=== PATIENT | female | born 1945 | race Two or more races ===

== ENCOUNTER 2024-01-08 08:27 | Outpatient (CLI) | payer OTHER | END 2024-01-08 08:34 | disposition home or self-care (01) | LOC: RAD 08:27 | PROVIDERS: ATTEND Specialist | DX: I70.0 Atherosclerosis of aorta (principal) ==

== ENCOUNTER → 2024-01-08 09:34 | Outpatient (CLI) | payer OTHER ==
[2024-01-08 11:49] LABS: HEMATOCRIT 43.3 % (36.0-45.00); HEMOGLOBIN 14.6 g/dL (12.0-15.00); MEAN CELL VOLUME 94.6 fL (80.00-100.00); MEAN CORPUSCULAR HEMOGLOBIN 31.9 pg (27.00-32.0); MEAN CORPUSCULAR HGB CONC 33.7 g/dl (32.0-36.0); PLATELET COUNT 162 K/uL (150-450); RED BLOOD COUNT 4.58 M/uL (4.00-6.00); RED CELL DISTRIBUTION WIDTH 13.3 % (11.5-14.5)
[2024-01-08 12:06] LABS: PH,URINE 5.5 (5.0-8.0); URINE APPEARANCE Clear; URINE BILIRRUBIN Negative (NEGATIVE); URINE BLOOD Negative; URINE COLOR Yellow; URINE LEUKOCYTE Negative; URINE NITRATE Negative; URINE PROTEIN Negative (NEGATIVE); URINE UROBILINOGEN 0.2 E.U./dl
[2024-01-08 12:10] LABS: URINE BACTERIA 54.1 uL (0.0-1933); URINE RBC 2.5 uL (0.0-20.8); URINE WBC 12.6 uL (0.0-23.2)
[2024-01-08 12:26] LABS: URINE GLUCOSE >=1000 MG/DL (NEGATIVE)
[2024-01-08 12:58] LABS: ALBUMIN 3.8 gm/dL (3.4-5.0); ALKALINE PHOSPHATASE 80 U/L (50-136); ALT/SGPT 20 U/L (12-78); ANION GAP 7 (10.0-20.0); AST/SGOT 14 U/L (15-37); BILIRUBIN TOTAL 0.44 mg/dL (0.3-1.2); BLOOD UREA NITROGEN 21 mg/dL (7-18); BUN CREA RATIO 32 (7.0-25.0); CALCIUM 8.8 mg/dL (8.5-10.1); CARBON DIOXIDE 28 mEq/L (21-32); CHLORIDE 108 mmol/L (98-107); CHOL HDL RATIO 3.2 (0-5.0); CHOLESTEROL 208 mg/dL (0-200); CREATININE SERUM 0.66 mg/dL (0.55-1.02); GFR 86.17; GLOBULINA 2.8 G/DL (2.4-3.5); GLUCOSE FASTING 169 mg/dL (65-100); HDL 65 mg/dl (40-60); LDL 117 mg/dl (0-130); OSMOLALITY SERUM 283 MOSM/KG (275-295); POTASSIUM 4.73 mEq/L (3.5-5.1); SODIUM 138 mmol/L (136-145); T4 FREE 1.04 NG/ML (0.76-1.46); TOTAL PROTEIN 6.6 gm/dL (6.4-8.2); TRIGLYCERIDES 128 mg/dL (0-150); TSH 0.945 uIU/mL (0.358-3.74); VLDL 25 (0-39)
[2024-01-08 13:20] LABS: C-REACTIVE PROTEIN < 0.29 MG/DL (0.00-0.29)
[2024-01-08 13:55] LABS: ob NEGATIVE (NEGATIVE)
== END | disposition home or self-care (01) ==
LOC: LAB 09:34
PROVIDERS: ATTEND Specialist
DX: R07.89 Other chest pain (principal); N39.9 Disorder of urinary system, unspecified; R19.5 Other fecal abnormalities; E03.8 Other specified hypothyroidism; Z13.220 Encounter for screening for lipoid disorders; D64.89 Other specified anemias; N39.0 Urinary tract infection, site not specified; E11.69 Type 2 diabetes mellitus with other specified complication; N25.81 Secondary hyperparathyroidism of renal origin; M00.80 Arthritis due to other bacteria, unspecified joint; E11.21 Type 2 diabetes mellitus with diabetic nephropathy

== ENCOUNTER 2024-07-15 08:48 | Outpatient (CLI) | payer OTHER ==
[2024-07-15 10:35] LABS: HEMATOCRIT 44.4 % (36.0-45.00); HEMOGLOBIN 14.9 g/dL (12.0-15.00); MEAN CORPUSCULAR HGB CONC 33.6 g/dl (32.0-36.0); PLATELET COUNT 158 K/uL (150-450); RED BLOOD COUNT 4.67 M/uL (4.00-6.00)
[2024-07-15 11:00] LABS: CREATININE URINE RANDOM 66.2 MG/DL (30-125)
[2024-07-15 11:11] LABS: BILIRUBIN TOTAL 0.32 mg/dL (0.3-1.2); BILIRUBIN,CONJUGATED 0.11 mg/dL (0.0-0.2); BILIRUBIN,UNCONJUGATED 0.21 mg/dL (0.0-0.6); CHOL HDL RATIO 2.3 (0-5.0); TSH 1.1 uIU/mL (0.358-3.74)
== END 2024-07-15 08:54 | disposition home or self-care (01) ==
LOC: LAB 08:48
PROVIDERS: ATTEND Specialist
DX: E11.65 Type 2 diabetes mellitus with hyperglycemia (principal); E03.9 Hypothyroidism, unspecified; E78.2 Mixed hyperlipidemia; D64.9 Anemia, unspecified; K75.81 Nonalcoholic steatohepatitis (NASH); N25.81 Secondary hyperparathyroidism of renal origin; N39.0 Urinary tract infection, site not specified; E11.21 Type 2 diabetes mellitus with diabetic nephropathy

== ENCOUNTER → 2024-10-14 08:41 | Outpatient (CLI) | payer OTHER ==
[2024-10-14 09:36] LABS: HEMATOCRIT 42.4 % (36.0-45.00); HEMOGLOBIN 14.7 g/dL (12.0-15.00); MEAN CELL VOLUME 93.9 fL (80.00-100.00); MEAN CORPUSCULAR HEMOGLOBIN 32.5 pg (27.00-32.0); MEAN CORPUSCULAR HGB CONC 34.6 g/dl (32.0-36.0); PLATELET COUNT 152 K/uL (150-450); RED BLOOD COUNT 4.51 M/uL (4.00-6.00); RED CELL DISTRIBUTION WIDTH 13.8 % (11.5-14.5)
[2024-10-14 09:38] LABS: PH,URINE 5.5 (5.0-8.0); URINE APPEARANCE Clear; URINE BILIRRUBIN Negative (NEGATIVE); URINE BLOOD Negative; URINE COLOR Yellow; URINE KETONE Negative (NEGATIVE); URINE LEUKOCYTE Small; URINE NITRATE Negative; URINE PROTEIN Negative (NEGATIVE); URINE UROBILINOGEN 0.2 E.U./dl
[2024-10-14 09:40] LABS: URINE BACTERIA 40.2 uL (0.0-1933); URINE EPITHELIAL CELLS 3.2 uL (0.0-38.8); URINE WBC 88.5 uL (0.0-23.2)
[2024-10-14 09:59] LABS: URINE CAST 0.15 uL (0.0-1.40); URINE GLUCOSE 500 MG/DL (NEGATIVE); URINE RBC 0.6 uL (0.0-20.8)
[2024-10-14 10:56] LABS: ALBUMIN 3.9 gm/dL (3.4-5.0); BILIRUBIN TOTAL 0.44 mg/dL (0.3-1.2); CALCIUM 8.9 mg/dL (8.5-10.1); CREATININE SERUM 0.61 mg/dL (0.55-1.02); GFR 94.13; GLOBULINA 2.8 G/DL (2.4-3.5); POTASSIUM 4.44 mEq/L (3.5-5.1); T4 FREE 0.93 NG/ML (0.76-1.46); TOTAL PROTEIN 6.7 gm/dL (6.4-8.2); TSH 1.77 uIU/mL (0.358-3.74)
== END | disposition home or self-care (01) ==
LOC: LAB 08:41
PROVIDERS: ATTEND Specialist
DX: E03.8 Other specified hypothyroidism (principal); E11.69 Type 2 diabetes mellitus with other specified complication; D64.89 Other specified anemias; N39.9 Disorder of urinary system, unspecified; Z13.220 Encounter for screening for lipoid disorders